=== PATIENT | male | born 1955 | race Caucasian/White ===

== ENCOUNTER → 2016-11-17 | Outpatient (CLI) | payer OTHER ==
[~2016-11-17] VITALS: Ht 190.5 cm; Wt 91.4 kg
[~2016-11-17] MED LIST: ACET-1138 PO; ACETAMINOPHEN 500 MG TAB PO SCH; AMLO-114 PO; ASPI81TA28 PO; CEFAZOLIN 2000 MG/60 ML D5W 60 ML IV SCH; CLB200 PO; CeleBREX 200 MG CAP PO SCH; DEXAMETHASONE 4 MG TAB PO SCH; FAMOTIDINE 20 MG TAB PO SCH; GABAPENTIN 300 MG CAP PO SCH; LACTATED RINGER'S 1000ML 1,000 ML IV SCH; LACTATED RINGER'S 1000ML 500 ML IV ONE; LACTATED RINGER'S 1000ML IV SCH; METOCLOPRAMIDE HCL 10 MG TAB PO SCH; MOEX15TA4 PO; MULT-506 PO; NASONEX NAE; OMEG10007 PO; ONDA8TAB6 PO; OXYCODONE HCL 10 MG TABCR (OXYCONTIN) PO SCH; POLYMYXIN B SULFATE 100,000 UNITS in NSS 100ML IR SCH; ROPIVACAINE 5MG/ML 30 ML 150 MG, BUPIVACAINE/EPINEPHR 0.5% MPF 30 ML, KETOROLAC TROMETH... INFIL SCH; RXC5 PO; SIMV20TA2 PO; SNK PO; TRANEXAMIC ACID INJ 1,000 MG in SODIUM CHLORIDE 0.9% 100ML 100 ML IV SCH; VANCOMYCIN INJ 400 MG in NSS 100ML IR SCH
[2016-11-17 13:03] VITALS: Ht 190.5 cm; Wt 91.4 kg
--- NOTE | 2016-11-17 13:22 | PAT Medication Instructions ---
Service Date Nov 17, 2016. Current Home Medication List Amlodipine (Norvasc), 10 MG PO QAM Aspirin (Aspirin Ec), 81 MG PO QAM Fish Oil ([place]-3), 1 CAP PO QAM Moexipril Hcl (Moexipril Hcl), 5 MG PO BID Multivitamin (Multivitamin), 1 TAB PO QAM Simvastatin (Zocor), 20 MG PO QPM [Nasonex], 2 SPRAYS MIHAELA QAM Medication Instructions For Your Scheduled Surgery - Hold the following medications 2 weeks prior to surgery: Fish Oil ([place]-3), 1 CAP PO QAM - Hold the following medications 24 hours prior to surgery: Moexipril Hcl (Moexipril Hcl), 5 MG PO BID - Hold the following medications the morning of surgery: Multivitamin (Multivitamin), 1 TAB PO QAM - Take the following medications the morning of surgery with a sip of water: Amlodipine (Norvasc), 10 MG PO QAM Aspirin (Aspirin Ec), 81 MG PO QAM [Nasonex], 2 SPRAYS MIHAELA QAM - Take the following medications as scheduled the night before surgery: Simvastatin (Zocor), 20 MG PO QPM If you have any questions please call us at [phone] or [phone] or [phone]
--- NOTE | 2016-11-17 14:14 | DIAGNOSTIC IMAGING REPORT ---
TWO VIEW CHEST CLINICAL HISTORY: Preoperative examination. FINDINGS: PA and lateral chest radiographs are obtained. No prior studies are available for comparison at the time of dictation. The cardiomediastinal silhouette is unremarkable. Nipple shadows project over both lung bases. The lungs and pleural spaces are clear. There is no pneumothorax. The skeletal structures are osteopenic. Degenerative change and DISH are noted in the thoracic spine. IMPRESSION: No active disease in the chest. Electronically signed by: Phillip Cuevas M.D. 11/17/2016 2:13 PM Dictated Date/Time: 11/17/2016 2:12 PM
[2016-11-17 14:31] LABS: URINE APPEARANCE CLEAR (CLEAR); URINE BILIRUBIN NEG (NEG); URINE COLOR YELLOW; URINE NITRITE NEG (NEG); URINE PH 5.5 (4.5-7.5); URINE SPECIFIC GRAVITY 1.015 (1.000-1.030); UROBILINOGEN NEG (NEG); ZZUR CULT IF INDIC CLEAN CATCH NO
[2016-11-17 14:35] LABS: BASO % 0.2 %; BASO ABS # 0.01 K/uL (0-0.2); COMPLETE YES; EOS % 0.7 %; HEMATOCRIT 42.7 % (42-52); IG% 0.3 %; LYMPH % 32.3 %; LYMPH ABS # 1.87 K/uL (1.2-3.4); MEAN CELL VOLUME 91.2 fL (80-100); MEAN CORPUSCULAR HEMOGLOBIN 32.1 pg (25-34); MEAN CORPUSCULAR HGB CONC 35.1 g/dl (32-36); MEAN PLATELET VOLUME 11.1 fL (7.4-10.4); MONO % 7.9 %; NEUT % 58.6 %; PLATELET COUNT 163 K/uL (130-400); RED BLOOD COUNT 4.68 M/uL (4.7-6.1); WHITE BLOOD COUNT 5.79 K/uL (4.8-10.8)
[2016-11-17 14:37] LABS: INR 1.1 (0.9-1.1); MANUAL MICROSCOPIC REQUIRED? NO; PROTHROMBIN TIME (PATIENT) 11.6 SECONDS (9.0-12.0); REVIEW REQ? NO
[2016-11-17 14:44] LABS: BUN/CREATININE RATIO 16.3 (10-20); CALCIUM 9.3 mg/dl (8.5-10.1); CREATININE 0.84 mg/dl (0.60-1.40); POTASSIUM 3.7 mmol/L (3.5-5.1)
--- NOTE | 2016-11-25 13:27 | HISTORY & PHYSICAL EXAMINATION ---
DATE OF ADMISSION: 12/05/2016 CHIEF COMPLAINT: Right hip pain. HISTORY OF PRESENT ILLNESS: Mr. Obrien is a 61-year-old male with a 5-year history of right hip pain. Over the last 2 years, his pain has gotten much worse. He rates his pain at 7/10. He has pain with his daily activities. He has limited standing and walking tolerance. Pain is worse with weightbearing. The patient has had anti-inflammatories and home exercise program without relief. He has failed conservative treatment and is scheduled for right hip replacement. PAST MEDICAL HISTORY: Hypertension and hypercholesterolemia. He denies heart disease, diabetes or DVT. PAST SURGICAL HISTORY: Hernia repair x3. SOCIAL HISTORY: The patient drinks 5 drinks per week. He denies tobacco use. He lives in a 2-west home. He is and currently works as a financial services representative. FAMILY HISTORY: Negative for DVT. MEDICATIONS: Moexipril 15 mg b.i.d., amlodipine 10 mg daily, simvastatin 20 mg daily, Nasonex 50 mcg, aspirin 81 mg, men's multivitamin one a day, and fish oil 1000 mg daily. ALLERGIES: None. REVIEW OF SYSTEMS: See HPI. Ten other systems reviewed, all negative. PHYSICAL EXAMINATION: VITAL SIGNS: Height 6 feet 3 inches, weight 195 pounds, and BMI is 25. GENERAL: This is a well-developed and well-nourished male, who is alert and oriented x3. Mood and affect are appropriate. HEENT: Normocephalic and atraumatic. Mucous membranes are moist and intact. NECK: Supple without lymphadenopathy. HEART: Regular rate and rhythm without murmurs, rubs or gallops. LUNGS: Clear to auscultation without wheezes or rhonchi. ABDOMEN: Soft and nontender. Bowel sounds are equal and active. EXTREMITIES: No ecchymosis, redness or warmth. Log roll of the hip reproduces the pain in the groin. Range of motion is limited. He is neurovascularly intact with +5/5 strength. He walks with an antalgic gait. X-RAY EXAMINATION: AP and lateral views show severe joint space narrowing with severe osteophyte formation. IMPRESSION: Degenerative joint disease, right hip. PLAN: The patient will be admitted for a right total hip arthroplasty. We will plan on aspirin for DVT prophylaxis. He will have [facility] for home physical therapy postoperatively. DOROTA
== END | disposition home or self-care (01) ==
LOC: C.LAB 08:00 → EDSTATUS 12-05 12:54
PROVIDERS: ATTEND Orthopaedic Surgery
DX: Z01.810 Encounter for preprocedural cardiovascular examination (principal); Z01.811 Encounter for preprocedural respiratory examination; Z01.812 Encounter for preprocedural laboratory examination

== ENCOUNTER 2017-01-31 07:23 | Inpatient (IN) | payer OTHER ==
--- NOTE | 2017-01-30 12:05 | HISTORY & PHYSICAL EXAMINATION ---
DATE OF ADMISSION: 01/31/2017 CHIEF COMPLAINT: Right hip pain. HISTORY OF PRESENT ILLNESS: Candy is a 61-year-old male with a 5-year history of pain in his right hip. The patient states over the last 2 years, the pain has gotten worse. He now rates his pain at 7/10. He has pain with his daily activities. He has limited standing and walking tolerance. Pain is worse with weightbearing. The patient has had anti-inflammatories and home exercise program without relief. He has failed conservative treatment and is scheduled for right hip replacement. PAST MEDICAL HISTORY: Hypertension and hypercholesterolemia. He denies heart disease, diabetes or DVT. PAST SURGICAL HISTORY: Hernia repair x3. SOCIAL HISTORY: The patient drinks 5 drinks per week. He denies tobacco use. He lives in a 2-west home. He is and works as a manager financial. FAMILY HISTORY: Negative for DVT. MEDICATIONS: Moexipril 15 mg twice daily, amlodipine 10 mg daily, simvastatin 20 mg daily, Nasonex 50 mcg 2 sprays daily, aspirin 81 mg daily, One A Day Men's 1 daily, fish oil 1000 mg daily. ALLERGIES: None. REVIEW OF SYSTEMS: See HPI. Ten other systems reviewed, all negative. PHYSICAL EXAMINATION: VITAL SIGNS: Height 6 feet 3 inches, weight 195 pounds, and BMI is 25. GENERAL: This is a well-developed and well-nourished male who is alert and oriented x3. Mood and affect are appropriate. HEENT: Normocephalic and atraumatic. Mucous membranes are moist and intact. NECK: Supple without lymphadenopathy. HEART: Regular rate and rhythm without murmurs, rubs or gallops. LUNGS: Clear to auscultation without wheezes or rhonchi. ABDOMEN: Soft and nontender. Bowel sounds are equal and active. EXTREMITIES: No ecchymosis, redness or warmth. Thigh and calf are soft and nontender. Log roll of the hip reproduces the pain in the groin. He is neurovascularly intact with +5/5 strength. Range of motion is decreased. He walks with an antalgic gait. X-RAY EXAMINATION: AP and lateral views show joint space narrowing and osteophyte formation. IMPRESSION: Degenerative joint disease, right hip. PLAN: The patient will be admitted for a right total hip arthroplasty, direct anterior. We will plan on aspirin for DVT prophylaxis. MTDD
[2017-01-31] VITALS (8 sets, daily range): BP systolic 117–143; BP diastolic 56–97; PULSE 54–68; TEMP 36.5–36.8; O2SAT 95–98; Ht 190.5 cm; Wt 91.0 kg
[~2017-01-31] VITALS: Ht 190.5 cm; Wt 91.0 kg
[~2017-01-31 07:23] MED LIST changes: -ACET-1138 PO; +BUPIVACAINE 0.5 % 5 MG/1 ML PF 10ML VIAL ONE; -CLB200 PO; -ONDA8TAB6 PO; -RXC5 PO; -SNK PO
[2017-01-31] MEDS ORDERED: PROPOFOL IV EMULSION 10 MG/ML 20 ML VIAL IV ONE (08:36)
[2017-01-31] MEDS ORDERED: LIDOCAINE HCL 2% 2 ML VIAL (20MG/ML) ONE (08:36)
[2017-01-31] MEDS ORDERED: ONDANSETRON INJ 2 MG/ML 2 ML VIAL ONE (08:36)
[2017-01-31] MEDS ORDERED: MIDAZOLAM HCL 1 MG/ML 2ML VIAL ONE ×2 (08:37→10:21)
[2017-01-31] MEDS ORDERED: FENTANYL CITRATE INJ 50 MCG/1 ML 2 ML VIAL ONE (08:37)
--- NOTE | 2017-01-31 08:46 | History & Physical Bridge Note ---
H&P Re-Evaluation Bridge Note: I have examined the patient, reviewed the History & Physical and in the interval since the performance of the History & Physical I have noted the following changes of clinical significance: No changes noted
[2017-01-31] MEDS: TRANEXAMIC ACID INJ 1,000 MG in SODIUM CHLORIDE 0.9% 100ML 100 ML IV SCH ×2 (09:04→12:56)
[2017-01-31] MEDS ORDERED: LACTATED RINGER'S 1000ML 1,000 ML IV PRN (09:09)
[2017-01-31] MEDS ORDERED: ORTHO JOINT ANESTHETIC ONE (09:10)
[2017-01-31] MEDS ORDERED: POVIDONE-IODINE OP SOLN 30 ML BTL ONE (09:11)
[2017-01-31] MEDS ORDERED: BACITRACIN 50000 UNIT VIAL ONE (09:11)
[2017-01-31] MEDS ORDERED: FENTANYL CITRATE INJ 50 MCG/1 ML 2 ML VIAL IV PRN (09:15)
[2017-01-31] MEDS ORDERED: ONDANSETRON INJ 2 MG/ML 2 ML VIAL IV PRN ×2 (09:15→11:45)
--- NOTE | 2017-01-31 11:36 | [facility] Post Operative Brief Note ---
Immediate Operative Summary Operative Date January 31, 2017. Pre-Operative Diagnosis Right Hip Degenerative Joint Disease Post-Operative Diagnosis Same as Preop Procedure(s) Performed Right Total Hip Arthroplasty Uncemented Direct Anterior Approach Surgeon Dr. Jose Araya Autocad Designer Surgeon(s) Yanira Worthington PA-C Estimated Blood Loss 150 ML Findings SEVERE HYPERTROPHIC OA Specimens A. Right Femoral Head Complication(s) None Disposition Recovery Room / PACU
[2017-01-31] MEDS ORDERED: MoRPHine SULFATE 2 MG/ML CARP IV PRN (11:45)
[2017-01-31] MEDS ORDERED: SOD PHOSPHATE/SOD BIPHOSPHATE ENEMA 132 ML BTL PR PRN (11:45)
[2017-01-31] MEDS ORDERED: OXYCODONE HCL IR 5 MG TAB (IMMEDIATE RELEASE) PO PRN (11:45)
[2017-01-31] MEDS ORDERED: BISACODYL 10 MG SUPP PR PRN (11:45)
[2017-01-31] MEDS ORDERED: METOCLOPRAMIDE HCL INJ 5 MG/ML 2 ML VIAL IV PRN (11:45)
[2017-01-31] MEDS ORDERED: TRAMADOL HCL 50 MG TAB PO PRN (11:45)
[2017-01-31] MEDS ORDERED: DiphenhydrAMINE HCL 50 MG/ML VIAL IV PRN (11:45)
[2017-01-31] MEDS ORDERED: MAGNESIUM HYDROXIDE SUSP 30 ML UDC PO PRN (11:45)
[2017-01-31] MEDS ORDERED: ALUMINUM/MAGNESIUM/SIMETH (MAALOX MAX) 30 ML UDC PO PRN (11:45)
[2017-01-31] MEDS ORDERED: ZOLPIDEM TARTRATE 5 MG TAB PO PRN (11:45)
--- NOTE | 2017-01-31 12:21 | Anesthesiology Progress Note ---
Anesthesia Post Op Note Date & Time January 31, 2017 at 12:21 Vital Signs Pain Intensity: 0 Vital Signs Past 12 Hours Date Time Temp Pulse Resp B/P Pulse Ox O2 Delivery O2 Flow Rate FiO2 01/31/17 12:10 36.6 65 26 118/65 96 Nasal Cannula 2 01/31/17 12:00 66 20 121/69 96 Nasal Cannula 2 01/31/17 11:52 36.6 71 20 112/72 97 Nasal Cannula 2 01/31/17 08:03 36.8 62 18 143/97 98 Room Air Notes Mental Status: alert / awake / arousable, participated in evaluation Pt Amnestic to Procedure: No (recall as expected) Nausea / Vomiting: adequately controlled Pain: adequately controlled Airway Patency, RR, SpO2: stable & adequate BP & HR: stable & adequate Hydration State: stable & adequate Neuraxial Anesthesia: was administered, sensory block is resolving Anesthetic Complications: no major complications apparent
--- NOTE | 2017-01-31 12:42 | DIAGNOSTIC IMAGING REPORT ---
RIGHT PELVIS/UNILATERAL HIP 1 VIEW CLINICAL HISTORY: IN PACU - A/P PELVIS and LATERAL HIP INCLUDING ALL OF IMPLANT Right COMPARISON: None. DISCUSSION: Total right hip replacement. Good contact between prosthetic and the Bone. Surgical drains are in position. Expected soft tissue postoperative change. IMPRESSION: Anatomic alignment status post total right hip replacement Electronically signed by: Sal Warner M.D. 01/31/2017 12:40 PM Dictated Date/Time: 01/31/2017 12:40 PM
--- NOTE | 2017-01-31 13:35 | DIAGNOSTIC IMAGING REPORT ---
INTRAOPERATIVE RADIOGRAPH CLINICAL HISTORY: Right hip arthroplasty. Fluoroscopy time: 10 seconds. FINDINGS: A single spot fluoroscopic view of the right hip is presented. A bipolar right hip arthroplasty is in near-anatomic alignment. A single cortical lag screw transfixes the acetabular cup. There is no evidence of acute fracture on this single fluoroscopic view. IMPRESSION: Intraoperative image from a right hip arthroplasty procedure as above. Electronically signed by: Phillip Cuevas M.D. 01/31/2017 1:34 PM Dictated Date/Time: 01/31/2017 1:33 PM
[2017-01-31] MEDS: D5W AND 1/2NSS + 20MEQ KCL 1,000 ML IV SCH ×2 (14:27→23:29)
[2017-01-31] MEDS: ACETAMINOPHEN 500 MG TAB PO SCH ×2 (14:28→22:03)
[2017-01-31] MEDS: KETOROLAC TROMETHAMINE 30 MG/ML VIAL IV. SCH ×2 (14:28→20:20)
--- NOTE | 2017-01-31 16:52 | Radiation Oncology Consult ---
Radiation Oncology Consult Date / Reason January 31, 2017. Physicians Radiation Oncologist: Dr. Krish Patterson Surgeon: Dr. Rusty Araya Diagnosis (1) Heterotopic ossification History of Present Illness I am seeing Mr. Obrien in consultation at the request of Dr. Araya from orthopedic surgery. The patient was seen at bedside with his . ECOG PS: 1 Mr. Obrien is a 61-year-old gentleman with a history of right hip osteoarthritis who elected to undergo a right total hip arthroplasty on [address] Rusty Araya. At the time of the operation, Dr. Araya noticed significant hypertrophic calcification and had concern for development of heterotopic ossification and has recommended consideration of prophylactic radiation therapy. Now seeing the patient in consultation to discuss role of prophylactic radiation therapy for the prevention of development of heterotopic ossification. Overall, the patient is doing relatively well. He is healing well from surgery. Past History Past Medical/Surgical History: Arthritis, High Cholesterol, Hypertension Social History Smoking Status: Former Smoker Hx Tobacco Use In Past Year?: No (SMOKED IN 20'S) Do You Dip or Chew Tobacco: No Hx Alcohol Use: Yes (5 BEER A WEEK) Hx Substance Use : No Allergies Coded Allergies: No Known Allergies (Unverified , 01/31/17) Home Medications Scheduled Amlodipine (Norvasc), 10 MG PO QAM Aspirin (Aspirin Ec), 81 MG PO QAM Fish Oil ([place]-3), 1 CAP PO QAM Moexipril Hcl (Moexipril Hcl), 5 MG PO BID Multivitamin (Multivitamin), 1 TAB PO QAM Simvastatin (Zocor), 20 MG PO QPM [Nasonex], 2 SPRAYS MIHAELA QAM Review of Systems Ear/Hearing: Ear Side: Left Hearing Ability: Normal Hearing Aid: None Edema: Present?: No Pain Management Pain Duration: years, worse over past year Side: Right Patient Preferred Pain Scale: 0 - 10 Initial Pain Intensity: 0.0 Pain Description: Dull, Radiating, Sharp, Tightness, Aching, Soreness, Colicky Physical Exam Height: 6 (Feet) 3 (Inches) 190.5 (Centimeters) 1.90 (Meters) Weight: 200 (Pounds) 9.9 (Ounces) 91.000 (Kilograms) 41959 (Grams) Date Time Temp Pulse Resp B/P Pulse Ox O2 Delivery O2 Flow Rate FiO2 01/31/17 16:18 36.5 68 16 118/73 97 Nasal Cannula 01/31/17 15:19 36.5 58 16 121/56 97 Nasal Cannula 2.0 01/31/17 14:15 36.7 62 16 124/73 97 Nasal Cannula 2.0 01/31/17 13:45 65 16 117/69 96 01/31/17 13:15 36.7 66 16 117/66 Nasal Cannula 2.0 01/31/17 13:15 Nasal Cannula 01/31/17 13:15 Nasal Cannula 01/31/17 12:50 60 17 103/65 96 Nasal Cannula 2 01/31/17 12:40 62 16 112/66 96 Nasal Cannula 2 01/31/17 12:25 59 14 103/66 96 Nasal Cannula 2 01/31/17 12:10 36.6 65 26 118/65 96 Nasal Cannula 2 01/31/17 12:00 66 20 121/69 96 Nasal Cannula 2 01/31/17 11:52 36.6 71 20 112/72 97 Nasal Cannula 2 01/31/17 08:03 36.8 62 18 143/97 98 Room Air General Appearance: WD/WN, no apparent distress Head: normocephalic, atraumatic Eyes: normal inspection ENT: normal ENT inspection Respiratory/Chest: chest non-tender, lungs clear, normal breath sounds, no respiratory distress Cardiovascular: regular rate, rhythm, no edema, no gallop, no JVD, no murmur Abdomen/GI: normal bowel sounds, non tender, soft, no organomegaly, no pulsatile mass Back: normal inspection Neurologic/Psych: alert, normal reflexes, oriented x 3 Lymphatic: no adenopathy Laboratory Labortaory Results: were reviewed Pathology Pathology results: were reviewed Imaging Imaging studies: were reviewed Imaging Comments RIGHT PELVIS/UNILATERAL HIP 1 VIEW - 01/31/2017 CLINICAL HISTORY: IN PACU - A/P PELVIS and LATERAL HIP INCLUDING ALL OF IMPLANT Right COMPARISON: None. DISCUSSION: Total right hip replacement. Good contact between prosthetic and the Bone. Surgical drains are in position. Expected soft tissue postoperative change. IMPRESSION: Anatomic alignment status post total right hip replacement Assessment & Recommendations Mr. Obrien is a 61-year-old gentleman who recently underwent a right total hip arthroplasty for degenerative arthritis in his right hip on 01/31/[address] Rusty Araya. During the time of the procedure, Dr. Araya did note hypertrophic calcifications and had significant concern for potential development of heterotopic ossification. He has requested that we evaluate the patient for consideration of prophylactic radiation therapy to prevent the development of heterotopic ossification. We are now seeing the patient in consultation to discuss the role of prophylactic radiation therapy to prevent the development of heterotopic ossification. In general, I discussed options including 1) observation 2) high dose NSAIDs and 3) radiation therapy. We did discuss the advantages and disadvantages of all 3 options. The patient would like to undergo a course of prophylactic radiation therapy. We will bring the patient down tomorrow for CT simulation for treatment planning and plan to deliver the treatment tomorrow before the patient is discharged from the hospital. In general, I did explain to the patient that radiation therapy can be used to prevent further development of heterotopic ossification. We did discuss that this can be done in both the preoperative setting and postoperative setting. In the postoperative setting, radiation therapy is only beneficial up to 72 hours following the completion of surgery. We then discussed the other additional side effects including but not limited to skin erythema, skin breakdown, decreased range of motion of the joints, fibrosis, telangiectasias, lymphedema, wound healing complications from surgery and development of secondary malignancy. The patient understands and is agreeable to radiation therapy. The patient has signed consent prior to CT simulation for treatment planning. The patient and family had multiple questions which were answered to their full satisfaction. Thank you for allowing us to participate in the care of this patient. This chart was completed in part utilizing [employer] Speech Voice Recognition software. Attempts were made to minimize the grammatical errors, random word insertions, pronoun errors and incomplete sentences. Any formal questions or concerns about the content, text or information contained within the body of this dictation should be directly addressed to the provider for clarification. Krish Patterson MD Department of Radiation Oncology [facility] Total Time In Consultation I spent 30 minutes examining and counseling the patient. I spent 15 minutes completing this note. Copy To Rusty Araya M.D.
--- NOTE | 2017-01-31 17:35 | OPERATIVE REPORT ---
DATE OF OPERATION: 01/31/2017 PREOPERATIVE DIAGNOSIS: Degenerative arthritis, right hip, severe. POSTOPERATIVE DIAGNOSIS: Same with severe hypertrophic arthritis, right hip. PROCEDURE: Right total hip replacement. SURGEON: Rusty Araya MD STRATEGIES ANALYST: ALONSO Mckee ANESTHESIA: Spinal. BLOOD LOSS: 150 mL. REPLACEMENT FLUIDS: 1800 mL of crystalloid. DRAINS: Hemovac x2. CULTURES: None. COMPLICATIONS: None. COMPONENTS USED: Gaston \T\ Nephew Polar hip system: Acetabulum size 58, femur size 6 high offset, femoral head +4, 36 mm. NOTE: ALONSO Mckee was present and assisted throughout due to the complicated nature of this case. She helped with preparation and set up, first assisted throughout and personally closed the fascial, subcutaneous and skin layers and applied the postoperative dressing. DESCRIPTION OF PROCEDURE: Following satisfactory spinal, the patient was supine. The right hip was placed in the traction device and the left leg in the well leg arriaza. The right hip was prepared with ChloraPrep and draped sterilely. Following a surgical time-out, an anterior approach was performed in the interval between the sartorius and tensor muscles. Circumflex femoral vessels were identified and ligated. An anterior capsulotomy was performed, exposing a severely arthritic femoral neck and head, which showed severe hypertrophic arthritis with large flowing osteophytes. The femoral neck and head were trimmed and removed. The acetabular retractors were placed. Acetabular reaming was completed and it was apparent that there was a large inferior osteophyte as well. The inferior osteophyte was removed. The cup was impacted under fluoroscopic guidance into an anatomic position and secured with a dome screw. Local anesthetic was placed and then the polyethylene liner was placed after irrigation. The femur was placed into position of external rotation, extension and adduction. Femoral canal was prepared up to the size 6. A trial reduction with a +4 head showed the best soft tissue tension and lutheran of leg lengths using fluoroscopic landmarks. The hip was dislocated. The trial component removed. The final implant was placed. The hip was irrigated and reduced with fluoroscopy confirming the position. A Betadine soak was performed for 5 minutes. After 5 minutes, the Betadine was irrigated. The capsule was closed with #1 Vicryl interrupted. A drain was placed. The fascia was closed with a running suture of 1 Vicryl, the subcutaneous tissues with 2-0 Vicryl and the skin with a running subcuticular stitch of 3-0 V-Loc. Dermabond and a dry dressing were applied. The patient was returned to his bed in stable condition. I attest to the content of the Intraoperative Record and any orders documented therein. Any exceptio ns are noted below.
[2017-01-31] MEDS: CEFAZOLIN IV 2,000 MG in DEXTROSE 5% 50ML 50 ML IV SCH (17:40)
[2017-01-31] MEDS ORDERED: TRANEXAMIC ACID INJ 1,000 MG in SODIUM CHLORIDE 0.9% 100ML 100 ML IV SCH (18:30)
[2017-01-31] MEDS: MOEXIPRIL HCL 15 MG PO SCH (20:20)
[2017-01-31] MEDS: ASPIRIN 81 MG ECTAB PO SCH (20:20)
[2017-01-31] MEDS ORDERED: SIMVASTATIN 20 MG TAB PO SCH (21:00)
[2017-01-31] MEDS ORDERED: SENNA 8.6 MG TAB PO SCH (21:00)
[2017-02-01] MEDS: KETOROLAC TROMETHAMINE 30 MG/ML VIAL IV. SCH ×3 (01:46→13:35)
[2017-02-01] MEDS: CEFAZOLIN IV 2,000 MG in DEXTROSE 5% 50ML 50 ML IV SCH (01:46)
[2017-02-01 03:30] VITALS: BP 101/68; PULSE 56; TEMP 36.6; O2SAT 97
[2017-02-01] MEDS: ACETAMINOPHEN 500 MG TAB PO SCH ×2 (05:45→13:34)
[2017-02-01 05:47] LABS: BASO % 0.1 %; BASO ABS # 0.01 K/uL (0-0.2); COMPLETE YES; HEMATOCRIT 35.9 % (42-52); IG% 0.3 %; LYMPH % 7.1 %; MEAN CELL VOLUME 91.8 fL (80-100); MEAN CORPUSCULAR HEMOGLOBIN 32.2 pg (25-34); MEAN CORPUSCULAR HGB CONC 35.1 g/dl (32-36); MEAN PLATELET VOLUME 10.9 fL (7.4-10.4); MONO % 6.4 %; NEUT % 86.1 %; PLATELET COUNT 169 K/uL (130-400); RED BLOOD COUNT 3.91 M/uL (4.7-6.1)
[2017-02-01 06:20] LABS: BUN/CREATININE RATIO 15.6 (10-20); CALCIUM 8.3 mg/dl (8.5-10.1); CREATININE 0.91 mg/dl (0.60-1.40); POTASSIUM 4.2 mmol/L (3.5-5.1)
[2017-02-01 07:20] VITALS: BP 108/69; PULSE 51; TEMP 36.7; O2SAT 98
[2017-02-01 07:36] VITALS: BP 120/78; PULSE 58; TEMP 37; O2SAT 98
[2017-02-01] MEDS: ASPIRIN 81 MG ECTAB PO SCH (08:19)
--- NOTE | 2017-02-01 08:19 | Discharge Instructions ---
Discharge Instructions Date of Service February 01, 2017. Admission Reason for Admission: Right Degenerative Arthritis - Pelvis/Thigh Discharge Discharge Diagnosis / Problem: SP RIGHT JANUSZ, DIRECT ANTERIOR Discharge Goals Goal(s): Decrease discomfort, Improve function, Increase independence Activity Recommendations Activity Limitations: per Instructions/Follow-up section . Instructions / Follow-Up Instructions / Follow-Up ACTIVITY RECOMMENDATIONS: SELF CARE INSTRUCTIONS AFTER TOTAL HIP REPLACEMENT : Direct Anterior Approach Until the incision and soft tissues around your hip have healed, there is a possibility that the hip prosthesis could dislocate. A. Hip flexion ( Up & Down out of chair or steps ) may be difficult. This is normal. B. Numbness in front of the thigh is also normal for a few weeks. C. Use hand rails when walking on stairs. D. Wear low heeled shoes with non-slip soles. E. Be sure that your floors are free of things that could trip you - throw rugs , electrical cords, small objects. Avoid wet and waxed floors, especially with crutches and canes. F. Try to walk several times a day with rest periods between. G. Continue with all the exercises taught to you in the hospital. Again, make walking a part of your daily routine. SPECIAL CARE INSTRUCTIONS: VERY IMPORTANT TO READ AND REVIEW A. You may still be at risk for phlebitis and blood clots. 1. Wear surgical stockings (CHELSY hose) for 2 weeks after surgery to improve circulation and reduce swelling. 2. Take Aspirin 81mg twice daily for 4 weeks or as directed by your doctor. This is your blood thinner. 3. High risk patients may be prescribed a stronger blood thinner if necessary. 4. If you are on Coumadin normally, your family doctor/academic director should monitor your blood work. Expect a phone call the day of or the day after bloodwork is drawn to adjust your dosage. B. You must take antibiotics before having dental work, bladder, bowel and other surgery. Your doctor will provide you with a permanent card to carry describing precautions. C. Call [facility] if you have a fever, redness or swelling around the incision, cloudy drainage from incision, or sudden increase in pain in your hip, not relieved by your regular pain medication. D. Please call the office at if you have any concerns or questions about your operation or recovery. * YOU MAY SHOWER, NO TUB BATHS UNTIL CLEARED BY YOUR DOCTOR. - Keep an extra close eye on the top portion of your incision. Be sure to keep clean & dry. * WEAR CHELSY HOSE 20 HOURS PER DAY FOR 2 WEEKS. * YOU MAY PROGRESS FROM A WALKER, TO A CANE, TO INDEPENDENT AT YOUR OWN PACE. * MOST PATIENTS WILL HAVE HOME NURSING FOR THERAPY. IF YOU DECIDE TO DO OUTPATIENT PHYSICAL THERAPY, PLEASE SCHEDULE THIS 3 TIMES PER WEEK. * DERMABOND Prineo- This is a mesh tape dressing that is covered with glue. It should remain in place until the incision is properly healed, usually 10-14 days. This dressing is designed to naturally slough off. You may trim the excess mesh tape as it peels off. Incision may be briefly wet in a shower. Dry immediately by blotting with a clean, dry towel. Do not bath or swim until instructed by your doctor. Do not scratch, rub, or pick at the dressing. Do not apply any topical ointments or lotions until dressing is completely removed and/or instructed by your doctor. There may be a small piece of suture material at one end of your incision. Do not pull or trim this. If it is bothersome or catching on clothing, you may cover it with a band-aid. FOLLOW UP VISIT: If appointment is not already scheduled: Please call [facility] to make a follow-up appointment for 2 weeks after your surgery at . Current Hospital Diet Patient's current hospital diet: Regular Diet Discharge Diet Recommended Diet: Regular Diet Procedures Procedures Performed: Right Total Hip Arthroplasty Uncemented Direct Anterior Approach Pending Studies Studies pending at discharge: no Medical Emergencies . Who to Call and When: Medical Emergencies: If at any time you feel your situation is an emergency, please call 911 immediately. . Non-Emergent Contact Non-Emergency issues call your: Surgeon . "Provider Documentation" section prepared by Yanira Worthington. . VTE Core Measure Inpt VTE Proph given/why not?: Other Anticoagulation, T.E.D. Stockings, SCD's [place] Drug Monitoring Program Search Results: patient reviewed within database, no issues identified
[2017-02-01] MEDS: MOEXIPRIL HCL 15 MG PO SCH (08:20)
[2017-02-01] MEDS ORDERED: SNK PO (08:21)
[2017-02-01] MEDS ORDERED: ASPI81TA28 PO (08:21)
[2017-02-01] MEDS ORDERED: CLB200 PO (08:21)
[2017-02-01] MEDS ORDERED: RXC5 PO (08:21)
[2017-02-01] MEDS ORDERED: ONDA8TAB6 PO (08:21)
[2017-02-01] MEDS ORDERED: ACET-1138 PO (08:21)
--- NOTE | 2017-02-01 08:52 | DISCHARGE SUMMARY ---
DISCHARGE DIAGNOSIS: Degenerative joint disease, right hip. SECONDARY DIAGNOSIS: None. CONSULTS: Dr. Patterson. COMPLICATIONS: None. PROCEDURE: The patient underwent a right total hip arthroplasty, direct anterior approach with Dr. Araya on 01/31/2017. BRIEF HISTORY: Please see previously dictated history and physical. HOSPITAL SUMMARY: The patient was admitted on the above day for the above procedure. Procedure went without complication. Postop day 1, the patient was feeling well without complaints. He denied chest pain or shortness of breath. Vital signs were stable. He was afebrile. Dressing was clean, dry and intact. He was neurovascularly intact. Calves were soft and nontender. Hemovac drained 190 mL respectively. Hemoglobin was 12.6. The patient began physical therapy per protocol. The patient also scheduled for radiation and for prevention of heterotopic ossification. The patient is scheduled to have mapping in his treatment today. The patient will be discharged later today in stable condition. For further review, please see the chart. Lab, x-ray data and discharge instructions as per chart.
[2017-02-01] MEDS ORDERED: AMLODIPINE BESYLATE 5 MG TAB PO SCH (09:00)
[2017-02-01] MEDS ORDERED: PANTOprazole SOD 40 MG TAB PO SCH (09:00)
[2017-02-01] MEDS ORDERED: MULTIVITAMIN TAB PO SCH (09:00)
[2017-02-01] MEDS ORDERED: NURSING VERBAL MED ORDER ONE (09:00)
[2017-02-01 11:47] VITALS: BP 110/70; PULSE 62; TEMP 36.4; O2SAT 100
--- NOTE | 2017-02-01 13:11 | Anesthesiology Progress Note ---
Anesthesia Post Op Note Date & Time February 01, 2017 at 13:10 Vital Signs Pain Intensity: 0.0 Vital Signs Past 12 Hours Date Time Temp Pulse Resp B/P Pulse Ox O2 Delivery O2 Flow Rate FiO2 02/01/17 11:47 36.4 62 14 110/70 100 Room Air 02/01/17 07:36 37.0 58 16 120/78 98 Room Air 02/01/17 07:20 36.7 51 16 108/69 98 Room Air 02/01/17 07:13 Room Air 02/01/17 03:30 36.6 56 16 101/68 97 Room Air Notes Mental Status: alert / awake / arousable, participated in evaluation Pt Amnestic to Procedure: Yes Nausea / Vomiting: adequately controlled Pain: adequately controlled Airway Patency, RR, SpO2: stable & adequate BP & HR: stable & adequate Hydration State: stable & adequate Neuraxial Anesthesia: sensory block resolved Anesthetic Complications: no major complications apparent
[2017-02-01 13:54] VITALS: BP 110/70; PULSE 62; TEMP 36.4; O2SAT 100
[2017-02-02] MEDS ORDERED: CeleBREX 200 MG CAP PO SCH (21:00)
--- NOTE | 2017-02-07 16:56 | Radiation Onc End of Treatmnt ---
End of Treatment Documentation Date February 07, 2017. Diagnosis (1) Heterotopic ossification Location: right hip History We are seeing Mr. Obrien in consultation at the request of Dr. Araya from orthopedic surgery. The patient was seen at bedside with his . ECOG PS: 1 Mr. Obrien is a 61-year-old gentleman with a history of right hip osteoarthritis who elected to undergo a right total hip arthroplasty on [address] Rusty Araya. At the time of the operation, Dr. Araya noticed significant hypertrophic calcification and had concern for development of heterotopic ossification and has recommended consideration of prophylactic radiation therapy. Now seeing the patient in consultation to discuss role of prophylactic radiation therapy for the prevention of development of heterotopic ossification. Overall, the patient is doing relatively well. He is healing well from surgery. Physics Course Treatment Site [employer] Start Date End Date Elapsed Days # TX Daily Dose (cGy) Total Dose (cGy) C1- Right Hip Parallel Opposed 15X 02/01/2017 02/01/2017 1 1 750 750 Do documented final doses agree with prescribed doses? Yes If not, explain: Is patients chart complete and accurate? Yes Additional Notes Patient underwent right hip surgery and it was felt that he should have heterotopic bone prophylaxis. Dr. Araya called our office. The patient was seen and arrangements were made for him to a CT simulation following his hip procedure. He then returned and was given 1 fraction of radiation therapy. He tolerated this well. He'll continue to follow up with orthopedics. He may call our office if he has any questions or concerns regarding his radiation therapy. Pain Management Patient had pain associated with his degenerative joint disease of the right hip. This was up to level VII. Discharged his pain level was 0. Copies To Rusty Araya M.D.
== END 2017-02-01 16:05 | disposition home health service (06) | DRG 470 ==
LOC: ENRESERVDT → ENRESERVTM → C.ACU 07:23 → C.3E 08:35
PROVIDERS: ADMIT Orthopaedic Surgery; ATTEND Orthopaedic Surgery
PROC: 0SR904A Replacement of Right Hip Joint with Ceramic on Polyethylene Synthetic Substitute, Uncemented, Open Approach (ICD-10-PCS; principal; 2017-01-31 09:45)
DX: M16.11 Unilateral primary osteoarthritis, right hip (principal); I10 Essential (primary) hypertension; E78.00 Pure hypercholesterolemia, unspecified; Z79.82 Long term (current) use of aspirin; M61.9 Calcification and ossification of muscle, unspecified; Z79.51 Long term (current) use of inhaled steroids; Z79.899 Other long term (current) drug therapy